=== PATIENT | female | born 1955 | race American Indian/Alaskan Native ===

== ENCOUNTER 2017-04-06 06:53 | Day surgery (SDC) | payer MEDICARE ==
--- NOTE | 2017-04-06 07:31 | Anesthesia Consultation ---
Anesthesia Consult and Med Hx Date of service: 04/06/17 - Airway Anesthetic Teeth Evaluation: Good (upper implants) ROM Head & Neck: Adequate Mental/Hyoid Distance: Adequate Mallampati Class: Class III - Pre-Operative Health Status ASA Pre-Surgery Classification: ASA2 Proposed Anesthetic Plan: MAC - Pulmonary Hx Smoking: No Hx Pneumonia: Yes - Cardiovascular System Hx Hypertension: Yes - Central Nervous System Hx Psychiatric Problems: Yes - Other Systems Hx Cancer: No
--- NOTE | 2017-04-06 07:31 | Anesthesia Day of Surgery ---
Anesthesia Day of Surgery - Day of Surgery Patient Examined: Yes Patient H&P Reviewed: Yes Patient is NPO: Yes
[2017-04-06] MEDS ORDERED: NACL 0.9% 1000 ML 1,000 ML IV SCH (08:00)
[2017-04-06] MEDS ORDERED: DIPRIVAN 10 MG/ML IV ONE ×3 (08:46→09:39)
--- NOTE | 2017-04-06 09:47 | Short Stay Summary ---
Short Stay Documentation - Allergies and Medications Current Medications: Allergies codeine Adverse Reaction (Verified 12/30/15 08:50) Unknown Home Medications Medication Instructions Recorded Confirmed Last Taken Type Esomeprazole Magnesium [NexIUM] 40 mg PO DAILY 12/30/15 04/06/17 04/05/17 History Lisinopril 20 mg PO DAILY 12/30/15 04/06/17 12/29/15 History 20mg Valsartan-Hctz 160-12.5 mg Tab 1 tab PO DAILY 04/06/17 04/06/17 04/06/17 History Active Medications Sodium Chloride (Nacl 0.9% 1000 Ml) 1,000 mls @ 50 mls/hr IV DIRECT JAIMIE Last Admin: 04/06/17 08:02 Dose: 50 mls/hr - Brief post op/procedure progress note Date of procedure: 04/06/17 Pre-op diagnosis: 1. GERD 2, Long's esophagus 3. Colon cancer screening Post-op diagnosis: same (EGD: 1, Esophagitis 2. Gastritis ? Hemorrhagic gastritis Colonoscopy 1. Diverticulosis 2. Internal hemorrhoids) Procedure: 1. EGD with biopsy 2. Colonoscopy Anesthesia: MAC Findings: as above Surgeon: ERNST ALDRICH Estimated blood loss: none Pathology: list (1. Antrum 2. Distal esophagus) Specimen disposition: to lab Condition: stable - Disposition Condition at discharge: Stable Disposition: [id number] TO HOME OR SELFCARE Short Stay Discharge Plan Activity: no restrictions Weight Bearing Status: Full Weight Bearing Diet: regular, low salt Follow up with: JOSELYN FERNANDEZ MD, PHD [Primary Care Provider] - 7 Days
[2017-04-06 10:04] VITALS: BP 137/68
[2017-04-06] MEDS ORDERED: WATER FOR IRRIG STERILE IR ONE (11:08)
== END 2017-04-06 06:54 | disposition home or self-care (01) ==
LOC: GIO 06:53
PROVIDERS: ATTEND Internal Medicine Gastroenterology
DX: Z12.11 Encounter for screening for malignant neoplasm of colon (principal); K64.0 First degree hemorrhoids; K57.30 Diverticulosis of large intestine without perforation or abscess without bleeding; K21.0 Gastro-esophageal reflux disease with esophagitis; K22.70 Barrett's esophagus without dysplasia; K29.70 Gastritis, unspecified, without bleeding; K22.8 Other specified diseases of esophagus; F41.9 Anxiety disorder, unspecified; I10 Essential (primary) hypertension; Z88.5 Allergy status to narcotic agent; Z79.899 Other long term (current) drug therapy; Z98.890 Other specified postprocedural states; Z90.710 Acquired absence of both cervix and uterus; Z87.01 Personal history of pneumonia (recurrent)
CPT/HCPCS: 43239; 88305; 88342; G0121; J2704; J7030